=== PATIENT | male | born 1955 | race Caucasian/White ===

== ENCOUNTER 2017-09-21 19:11 | Emergency (ER) | payer MEDICAID, MEDICARE ==
[~2017-09-21] VITALS: Ht 172.7 cm; Wt 60.0 kg
[~2017-09-21 19:11] MED LIST: AMIO200T42 PO; APIX5TAB PO; ASPI-496 PO; CEFD300C37 PO; CYCL-259 PO; GABA300C10 PO; GABA600T2 PO; LISI5TAB7 PO; OXYC10TA6 PO; SIMV20TA3 PO
[2017-09-21 19:12] VITALS: BP 130/90
[2017-09-21] MEDS ORDERED: KETOROLAC 30 MG/1 ML IM ONE (19:30)
[2017-09-21] MEDS ORDERED: KETOROLAC 30 MG/1 ML ONE (20:22)
[2017-09-21] MEDS ORDERED: MORPHINE SULFATE 4 MG/ML, 1ML ONE (20:41)
[2017-09-21] MEDS ORDERED: MORPHINE SULFATE 4 MG/ML, 1ML IVPush ONE (21:00)
== END 2017-09-21 21:28 | disposition home or self-care (01) ==
LOC: ED 21:22
DX: M25.532 Pain in left wrist (principal); I25.10 Atherosclerotic heart disease of native coronary artery without angina pectoris; I10 Essential (primary) hypertension; F17.210 Nicotine dependence, cigarettes, uncomplicated; X58.XXXA Exposure to other specified factors, initial encounter; Y93.89 Activity, other specified; Y99.8 Other external cause status; Y92.009 Unspecified place in unspecified non-institutional (private) residence as the place of occurrence of the external cause
CPT/HCPCS: 29260; 96374